=== PATIENT | female | born 1985 | race Caucasian/White ===

== ENCOUNTER 2017-03-02 01:54 | Emergency (ER) | payer SELFPAY ==
[~2017-03-02] VITALS: Ht 162.6 cm; Wt 60.0 kg
[2017-03-02 02:03] VITALS: PULSE 106; RESP 22; O2SAT 98
[2017-03-02] MEDS ORDERED: SODIUM CHLOR 0.9% 1000 ML INJ 1,000 ML IV ONE (02:06)
[2017-03-02 02:12] VITALS: BP 126/66; PULSE 101; RESP 20; TEMP 97.5; O2SAT 98
--- NOTE | 2017-03-02 02:14 | PD ---
HPI Chief Complaint: overdose Time Seen by Provider: 02:05 Travel History International Travel<30 days: No Contact w/Intl Traveler<30days: No History of Present Illness HPI The patient is a 32 year old female who presents to the [facility] emergency department with a history of decreased level of consciousness noted by the police when they were called out because the patient was unresponsive. The patient has a known history of Xanax and Dilaudid use. The patient is an IV drug user. She reports that she's been using for the last 2 years. The patient reports that she was using earlier this evening. She reports that she was using the same amount as usual. She denies any thoughts of harming herself or intention to harm herself prior to arrival. The patient was given Narcan 4 mg intranasally by the police and was noted upon ambulance services arrival to be awake and alert. The patient's blood sugar prior to arrival was 175. The patient shivering on arrival. Bystanders apparently prior to calling the police because of her decreased level of consciousness placed her in a bathtub of ice. The patient has a sinus tachycardia on arrival with a rate in the low 100s. The patient denies any history of fever, cough, congestion, neck pain, chest pain, shortness of breath, abdominal pain, vomiting, diarrhea, urinary symptoms, or neurologic symptoms. LMP: 1-2 months ago [facility] Past Medical History Narrative Medical The patient's past medical history is significant for hepatitis C, history of IV drug use. LMP: 1-2 months ago Past Surgical History Narrative Surgical The patient denies any past surgical history. Social History Alcohol Use: No Tobacco Use: Yes (1-1/2 packs of cigarettes per day) Substance Use: Yes (Xanax, Dilaudid, and "ice") Allergies-Medications (Allergen,Severity, Reaction): Coded Allergies: No Known Allergies (Unverified , 03/02/17) Review of Systems Except as stated in HPI: all other systems reviewed are Neg General / Constitutional: No: Fever Eyes: No: Visual changes HENT: No: Headaches Cardiovascular: No: Chest Pain or Discomfort Respiratory: No: Shortness of Breath Gastrointestinal: No: Abdominal Pain Genitourinary: No: Dysuria Musculoskeletal: No: Pain Skin: No Rash Neurologic: Positive: Change in Mentation, No: Weakness, Focal Abnormalities, Slurred Speech, Sensory Disturbance Psychiatric: Positive: Substance Abuse, No: Depression Endocrine: No: Polydipsia Hematologic/Lymphatic: No: Easy Bruising Physical Exam Narrative General: The patient is a well-developed well-nourished female, cold and wet on arrival related to being in a tub of ice. Head and Neck exam: Head is normocephalic atraumatic. Eyes: EOMI, pupils are equal round and reactive to light. Nose: Midline septum with pink mucous membranes Mouth: Dentition unremarkable. Moist mucus membranes. Posterior oropharynx is not erythematous. No tonsillar hypertrophy. Uvula midline. Airway patent. Neck: No palpable lymphadenopathy. No nuchal rigidity. No thyromegaly. Cardiovascular: Sinus tachycardia in the low 100s without murmurs, gallops, or rubs. No pulse deficit to the extremities and simultaneous auscultation and palpation of her radial artery. Lungs: Clear to auscultation bilaterally. No wheezes, rhonchi, or rales. Abdomen: Soft, without tenderness to palpation in all 4 quadrants of the abdomen. No guarding, rebound, or rigidity. No bowel sounds are audible. No tenderness on palpation of McBurney's point. Extremities: No clubbing, cyanosis, or edema. 2+ pulses in all 4 extremities. No calf tenderness on palpation. The patient has bruising in various stages of healing on her extremities. The patient has track perkins noted on her extremities. No signs of cellulitis or abscess formation. Back: No spinous process tenderness to palpation. No costovertebral angle tenderness to palpation. Neurologic Exam: Cranial nerves 2-12 were intact on exam. Strength is 5/5 in all 4 extremities. No sensory deficits noted. The patient is shivering on examination. The patient is oriented to person, place, time, and situation. Skin Exam: No rash noted. The patient's skin is cool and wet to touch. Data Data Last Documented VS Vital Signs Date Time Temp Pulse Resp B/P (MAP) Pulse Ox O2 Delivery O2 Flow Rate FiO2 03/02/17 11:33 98 20 105/56 (72) 93 03/02/17 11:30 Room Air 03/02/17 02:12 97.5 Orders Orders Complete Blood Count With Diff (03/02/17 02:06) Comprehensive Metabolic Panel (03/02/17 02:06) Prothrombin Time / Inr (Pt) (03/02/17 02:06) Act Partial Throm Time (Ptt) (03/02/17 02:06) Chest, Single Ap (03/02/17 02:06) Iv Access Insert/Monitor (03/02/17 02:06) Ecg Monitoring (03/02/17 02:06) Oximetry (03/02/17 02:06) Sodium Chloride 0.9% Flush (Ns Flush) (03/02/17 02:15) Sodium Chlor 0.9% 1000 Ml Inj (Ns 1000 M (03/02/17 02:06) Alcohol (Ethanol) (03/02/17 02:06) Salicylates (Aspirin) (03/02/17 02:06) Tylenol (Acetaminophen) (03/02/17 02:06) Labs Laboratory Tests Test 03/02/17 02:15 White Blood Count 14.1 TH/MM3 Red Blood Count 5.28 MIL/MM3 Hemoglobin 15.3 GM/DL Hematocrit 46.5 % Mean Corpuscular Volume 88.2 FL Mean Corpuscular Hemoglobin 29.0 PG Mean Corpuscular Hemoglobin Concent 32.9 % Red Cell Distribution Width 13.2 % Platelet Count 387 TH/MM3 Mean Platelet Volume 6.8 FL Neutrophils (%) (Auto) 81.9 % Lymphocytes (%) (Auto) 10.6 % Monocytes (%) (Auto) 5.9 % Eosinophils (%) (Auto) 1.0 % Basophils (%) (Auto) 0.6 % Neutrophils # (Auto) 11.5 TH/MM3 Lymphocytes # (Auto) 1.5 TH/MM3 Monocytes # (Auto) 0.8 TH/MM3 Eosinophils # (Auto) 0.1 TH/MM3 Basophils # (Auto) 0.1 TH/MM3 CBC Comment DIFF FINAL Differential Comment Prothrombin Time 11.2 SEC Prothromb Time International Ratio 1.0 RATIO Activated Partial Thromboplast Time 24.8 SEC Blood Urea Nitrogen 12 MG/DL Creatinine 0.95 MG/DL Random Glucose 83 MG/DL Total Protein 8.4 GM/DL Albumin 3.8 GM/DL Calcium Level 8.9 MG/DL Alkaline Phosphatase 163 U/L Aspartate Amino Transf (AST/SGOT) 73 U/L Alanine Aminotransferase (ALT/SGPT) 46 U/L Total Bilirubin 0.5 MG/DL Sodium Level 138 MEQ/L Potassium Level 3.8 MEQ/L Chloride Level 105 MEQ/L Carbon Dioxide Level 27.2 MEQ/L Anion Gap 6 MEQ/L Estimat Glomerular Filtration Rate 69 ML/MIN Salicylates Level LESS THAN 1.7 MG/DL Acetaminophen Level LESS THAN 2.0 MCG/ML Ethyl Alcohol Level LESS THAN 3 MG/DL MDM Medical Decision Making Medical Screen Exam Complete: Yes Emergency Medical Condition: Yes Medical Record Reviewed: Yes Interpretation(s) Last Impressions Chest X-Ray 03/02/17 0206 Signed Impressions: Service Date/Time: February 02:36 - CONCLUSION: 1. No acute cardiopulmonary disease. Wang Iverson MD Differential Diagnosis Opiate intoxication, versus other substance intoxication, versus multidrug intoxication Narrative Course During the course of the patients emergency department visit, the patients history, examination, and differential diagnosis were reviewed with the patient. The patient had IV access obtained and blood work sent for analysis. The patient was placed on a quality assurance monitor with oximetry and blood pressure monitoring. The patient was initially provided normal saline 1 L IV fluid bolus. The patient will be observed in the emergency department on telemetry and oximetry for any signs of respiratory depression or any signs of decreased level of consciousness as the Narcan begins to wear off. The patient was repeatedly reassessed. The patient continues to be drowsy on examination although arousable. The patient will be continued to be monitored until she is more awake and alert and able to tolerate oral liquids The patients laboratory studies were reviewed and remarkable for a white count of 14.1, hemoglobin 15.3, platelets 387 with 81.9 neutrophils. CMP is remarkable for GFR 69, AST 73, alkaline phosphatase 163, total protein 8.4, salicylate less than 1.7, acetaminophen less than 2, alcohol level less than 3. Radiology studies were reviewed and remarkable for a chest x-ray that shows no acute cardiopulmonary disease. The patient will be discharged home when she is more awake and alert. The patient was instructed regarding the importance of avoiding use of Dilaudid or other opiates illicitly. The patient is resting comfortably and feels better, is alert and in no distress. The patients results and examination findings were discussed with the patient. The repeat examination is unremarkable and benign. The history, exam, diagnostic testing, and current condition do not suggest any significant pathology to warrant further testing, continued ED treatment, admission, or surgical evaluation at this point. The vital signs have been stable. The patient does not have uncontrollable pain, intractable vomiting, or other significant symptoms. The patient's condition is stable and appropriate for discharge. The patient will pursue further outpatient evaluation with a primary care physician or other designated or consulting physician as indicated in the discharge instructions. The patient expressed understanding and was agreeable with this plan. Diagnosis Primary Impression: Polysubstance abuse Additional Impression: Opiate overdose Qualified Codes: T40.601A - Poisoning by unspecified narcotics, accidental ( unintentional), initial encounter Referrals: Primary Care Physician [facility] Patient Instructions: General Instructions, Opioid Overdose (ED), Polysubstance Abuse (ED) Disposition: 01 DISCHARGE HOME Condition: Stable Susannah Bautista MD Mar 02, 2017 02:14
[2017-03-02] MEDS ORDERED: SODIUM CHLORIDE 0.9% FLUSH 10 ML FLUSH IVF PRN (02:15)
[2017-03-02 02:29] LABS: AUTOMATED NEUTROPHIL # 11.5 TH/MM3 (1.8-7.7); BASOPHIL # 0.1 TH/MM3 (0-0.2); BASOPHIL % 0.6 % (0.0-2.0); EOSINOPHIL # 0.1 TH/MM3 (0-0.4); HEMATOCRIT 46.5 % (35.0-46.0); HEMO FLAGS DIFF FINAL; LYMPH % 10.6 % (9.0-44.0); LYMPHOCYTE # 1.5 TH/MM3 (1.0-4.8); MEAN CELL VOLUME 88.2 FL (80.0-100.0); MEAN CORPUSCULAR HGB CONC 32.9 % (32.0-36.0); MONO % 5.9 % (0.0-8.0); NEUT % 81.9 % (16.0-70.0); PLATELET COUNT 387 TH/MM3 (150-450); RED BLOOD COUNT 5.28 MIL/MM3 (4.00-5.30); RED CELL DISTRIBUTION WIDTH 13.2 % (11.6-17.2); WHITE BLOOD COUNT 14.1 TH/MM3 (4.0-11.0)
[2017-03-02 02:44] LABS: ALT (GPT) 46 U/L (10-53); ANION GAP 6 MEQ/L (5-15); AST (GOT) 73 U/L (15-37); BICARBONATE 27.2 MEQ/L (21.0-32.0); BLOOD UREA NITROGEN 12 MG/DL (7-18); CHLORIDE 105 MEQ/L (98-107); GLOMERULAR FILTRATION RATE 69 ML/MIN (>89); POTASSIUM 3.8 MEQ/L (3.5-5.1); SODIUM (NA) 138 MEQ/L (136-145)
[2017-03-02 02:47] LABS: ALKALINE PHOSPHATASE 163 U/L (45-117); TOTAL BILIRUBIN ADULT 0.5 MG/DL (0.2-1.0)
--- NOTE | 2017-03-02 02:47 | RADRPT ---
EXAM DATE/TIME: 03/02/2017 02:36 [place] COMPARISON: No previous studies available for comparison. INDICATIONS : Syncope. Possible overdose. MEDICAL HISTORY : None. SURGICAL HISTORY : None. ENCOUNTER: Initial ACUITY: 1 day PAIN SCORE: Non-responsive. LOCATION: Bilateral chest FINDINGS: A single view of the chest demonstrates the lungs to be symmetrically aerated without evidence of mas s, infiltrate or effusion. The cardiomediastinal contours are unremarkable. Osseous structures are intact. CONCLUSION: 1. No acute cardiopulmonary disease. Wang Iverson MD on March 02, 2017 at 2:45 Board Certified Radiologist. This report was verified electronically.
[2017-03-02 02:49] LABS: ACETAMINOPHEN LESS THAN 2.0 MCG/ML (10.0-30.0); ALCOHOL LESS THAN 3 MG/DL (0-5)
[2017-03-02 02:55] LABS: APTT (PATIENT) 24.8 SEC (24.3-30.1); PROTHROMBIN TIME - PATIENT 11.2 SEC (9.8-11.6)
[2017-03-02 03:34] VITALS: BP 99/57; PULSE 95; RESP 16; O2SAT 97
[2017-03-02 04:11] VITALS: BP 92/50; PULSE 96; RESP 18; O2SAT 96
[2017-03-02 07:00] VITALS: BP 93/57; PULSE 94; RESP 18; O2SAT 95
--- NOTE | 2017-03-02 11:12 | PD ---
Physical Exam Narrative GENERAL: SKIN: Warm and dry. HEAD: Atraumatic. Normocephalic. EYES: Pupils equal and round. No scleral icterus. No injection or drainage. ENT: No nasal bleeding or discharge. Mucous membranes pink and moist. NECK: Trachea midline. No JVD. CARDIOVASCULAR: Regular rate and rhythm. RESPIRATORY: No accessory muscle use. Clear to auscultation. Breath sounds equal bilaterally. GASTROINTESTINAL: Abdomen soft, non-tender, nondistended. Hepatic and splenic margins not palpable. MUSCULOSKELETAL: Extremities without clubbing, cyanosis, or edema. No obvious deformities. NEUROLOGICAL: DROWSY AND SLEEPY BUT AROUSABLE. No obvious cranial nerve deficits. Motor grossly within normal limits. Five out of 5 muscle strength in the arms and legs. Normal speech. PSYCHIATRIC: Appropriate mood and affect; insight and judgment normal. Data Data Last Documented VS Vital Signs Date Time Temp Pulse Resp B/P (MAP) Pulse Ox O2 Delivery O2 Flow Rate FiO2 03/02/17 07:00 94 18 93/57 (69) 95 Room Air 03/02/17 02:12 97.5 Orders Orders Complete Blood Count With Diff (03/02/17 02:06) Comprehensive Metabolic Panel (03/02/17 02:06) Prothrombin Time / Inr (Pt) (03/02/17 02:06) Act Partial Throm Time (Ptt) (03/02/17 02:06) Urinalysis - C+S If Indicated (03/02/17 02:06) Chest, Single Ap (03/02/17 02:06) Iv Access Insert/Monitor (03/02/17 02:06) Ecg Monitoring (03/02/17 02:06) Oximetry (03/02/17 02:06) Sodium Chloride 0.9% Flush (Ns Flush) (03/02/17 02:15) Sodium Chlor 0.9% 1000 Ml Inj (Ns 1000 M (03/02/17 02:06) Drug Screen, Random Urine (03/02/17 02:06) Alcohol (Ethanol) (03/02/17 02:06) Salicylates (Aspirin) (03/02/17 02:06) Tylenol (Acetaminophen) (03/02/17 02:06) Labs Laboratory Tests Test 03/02/17 02:15 White Blood Count 14.1 TH/MM3 Red Blood Count 5.28 MIL/MM3 Hemoglobin 15.3 GM/DL Hematocrit 46.5 % Mean Corpuscular Volume 88.2 FL Mean Corpuscular Hemoglobin 29.0 PG Mean Corpuscular Hemoglobin Concent 32.9 % Red Cell Distribution Width 13.2 % Platelet Count 387 TH/MM3 Mean Platelet Volume 6.8 FL Neutrophils (%) (Auto) 81.9 % Lymphocytes (%) (Auto) 10.6 % Monocytes (%) (Auto) 5.9 % Eosinophils (%) (Auto) 1.0 % Basophils (%) (Auto) 0.6 % Neutrophils # (Auto) 11.5 TH/MM3 Lymphocytes # (Auto) 1.5 TH/MM3 Monocytes # (Auto) 0.8 TH/MM3 Eosinophils # (Auto) 0.1 TH/MM3 Basophils # (Auto) 0.1 TH/MM3 CBC Comment DIFF FINAL Differential Comment Prothrombin Time 11.2 SEC Prothromb Time International Ratio 1.0 RATIO Activated Partial Thromboplast Time 24.8 SEC Blood Urea Nitrogen 12 MG/DL Creatinine 0.95 MG/DL Random Glucose 83 MG/DL Total Protein 8.4 GM/DL Albumin 3.8 GM/DL Calcium Level 8.9 MG/DL Alkaline Phosphatase 163 U/L Aspartate Amino Transf (AST/SGOT) 73 U/L Alanine Aminotransferase (ALT/SGPT) 46 U/L Total Bilirubin 0.5 MG/DL Sodium Level 138 MEQ/L Potassium Level 3.8 MEQ/L Chloride Level 105 MEQ/L Carbon Dioxide Level 27.2 MEQ/L Anion Gap 6 MEQ/L Estimat Glomerular Filtration Rate 69 ML/MIN Salicylates Level LESS THAN 1.7 MG/DL Acetaminophen Level LESS THAN 2.0 MCG/ML Ethyl Alcohol Level LESS THAN 3 MG/DL [facility] Medical Record Reviewed: Yes Supervised Visit with ASMITA: No Diagnosis Primary Impression: MEDICALLY CLEAR Elias Llanos MD Mar 02, 2017 11:12
[2017-03-02 11:33] VITALS: BP 105/56
== END 2017-03-02 11:35 | disposition home or self-care (01) ==
LOC: NEPC 01:54
DX: T40.601A Poisoning by unspecified narcotics, accidental (unintentional), initial encounter (principal); R00.0 Tachycardia, unspecified; F17.210 Nicotine dependence, cigarettes, uncomplicated; B19.20 Unspecified viral hepatitis C without hepatic coma
CPT/HCPCS: 71010; 80053; 80307; 85025; 85610; 85730; 96360; 99285; J7030

== ENCOUNTER 2017-09-13 22:04 | Emergency (ER) | payer SELFPAY ==
[~2017-09-13] VITALS: Ht 165.1 cm; Wt 65.0 kg
[2017-09-13 22:15] VITALS: BP 113/77; PULSE 106; RESP 12; TEMP 97.8; O2SAT 89
[2017-09-13] MEDS ORDERED: SODIUM CHLOR 0.9% 1000 ML INJ 1,000 ML IV SCH (22:30)
[2017-09-13 22:40] LABS: AUTOMATED NEUTROPHIL # 5.8 TH/MM3 (1.8-7.7); BASOPHIL % 0.5 % (0.0-2.0); EOSINOPHIL # 0.1 TH/MM3 (0-0.4); HEMATOCRIT 39.5 % (35.0-46.0); HEMOGLOBIN 13.5 GM/DL (11.6-15.3); LYMPH % 20.5 % (9.0-44.0); LYMPHOCYTE # 1.8 TH/MM3 (1.0-4.8); MEAN CELL VOLUME 86.1 FL (80.0-100.0); MEAN CORPUSCULAR HEMOGLOBIN 29.5 PG (27.0-34.0); MEAN CORPUSCULAR HGB CONC 34.2 % (32.0-36.0); MEAN PLATELET VOLUME 6.7 FL (7.0-11.0); MONO % 12.8 % (0.0-8.0); MONOCYTE # 1.1 TH/MM3 (0-0.9); NEUT % 65.2 % (16.0-70.0); PLATELET COUNT 488 TH/MM3 (150-450); RED BLOOD COUNT 4.58 MIL/MM3 (4.00-5.30); RED CELL DISTRIBUTION WIDTH 14.2 % (11.6-17.2); WHITE BLOOD COUNT 8.9 TH/MM3 (4.0-11.0)
--- NOTE | 2017-09-13 22:47 | PD ---
HPI Chief Complaint: OD/ Ingestion Time Seen by Provider: 22:17 Travel History International Travel<30 days: No Contact w/Intl Traveler<30days: No Traveled to known affect area: No History of Present Illness HPI 32-year-old female was brought in by EMS after having an overdose. Patient's friend states that she was abusing heroin for the past few years including tonight. Patient was found unresponsive and possible seizure activity. EMS was called. Patient was given Narcan IV with good success. Patient arrived to the ED lethargic and unable to provide information. [facility] Past Medical History Medical History: Denies Significant Hx Diminished Hearing: No ?: Unknown LMP: 08/15/2017 Past Surgical History Surgical History: No Previous Surgery Social History Alcohol Use: No Tobacco Use: Yes (1/2 packs of cigarettes per day) Substance Use: Yes (Xanax, Dilaudid, heroin and "ice") Allergies-Medications (Allergen,Severity, Reaction): Coded Allergies: No Known Allergies (Unverified Adverse Reaction, Unknown, 09/13/17) Review of Systems ROS Limitations: Altered Mental Status General / Constitutional: No: Fever Eyes: No: Visual changes HENT: No: Headaches Cardiovascular: No: Chest Pain or Discomfort Respiratory: No: Shortness of Breath Gastrointestinal: No: Abdominal Pain Genitourinary: No: Dysuria Musculoskeletal: No: Pain Skin: No Rash Neurologic: No: Weakness Psychiatric: No: Depression Endocrine: No: Polydipsia Hematologic/Lymphatic: No: Easy Bruising Physical Exam Narrative GENERAL: Well-nourished, well-developed patient. SKIN: Focused skin assessment warm/dry. HEAD: Normocephalic. EYES: No scleral icterus. No injection or drainage. Pupil 1 mm equal reactive. NECK: Supple, trachea midline. No JVD or lymphadenopathy. CARDIOVASCULAR: Regular rate and rhythm without murmurs, gallops, or rubs. RESPIRATORY: Breath sounds equal bilaterally. No accessory muscle use. GASTROINTESTINAL: Abdomen soft, non-tender, nondistended. MUSCULOSKELETAL: No cyanosis, or edema. BACK: Nontender without obvious deformity. No CVA tenderness. Neurologic exam: Patient is lethargic. Patient responded to painful stimuli. Patient moves extremity on command. No obvious focal neurological deficit. Data Data Last Documented VS Vital Signs Date Time Temp Pulse Resp B/P (MAP) Pulse Ox O2 Delivery O2 Flow Rate FiO2 3/21/18 23:11 103 12 111/73 (86) 100 Nasal Cannula 2.00 09/13/17 22:15 97.8 Orders Orders Complete Blood Count With Diff (09/13/17 22:20) Basic Metabolic Panel (Bmp) (09/13/17 22:20) Iv Access Insert/Monitor (09/13/17 22:20) Ecg Monitoring (09/13/17 22:20) Oxygen Administration (09/13/17 22:20) Oximetry (09/13/17 22:20) Ed Urine Pregnancytest Poc (09/13/17 22:20) Sodium Chlor 0.9% 1000 Ml Inj (Ns 1000 M (09/13/17 22:30) Labs Laboratory Tests Test 09/13/17 22:29 White Blood Count 8.9 TH/MM3 Red Blood Count 4.58 MIL/MM3 Hemoglobin 13.5 GM/DL Hematocrit 39.5 % Mean Corpuscular Volume 86.1 FL Mean Corpuscular Hemoglobin 29.5 PG Mean Corpuscular Hemoglobin Concent 34.2 % Red Cell Distribution Width 14.2 % Platelet Count 488 TH/MM3 Mean Platelet Volume 6.7 FL Neutrophils (%) (Auto) 65.2 % Lymphocytes (%) (Auto) 20.5 % Monocytes (%) (Auto) 12.8 % Eosinophils (%) (Auto) 1.0 % Basophils (%) (Auto) 0.5 % Neutrophils # (Auto) 5.8 TH/MM3 Lymphocytes # (Auto) 1.8 TH/MM3 Monocytes # (Auto) 1.1 TH/MM3 Eosinophils # (Auto) 0.1 TH/MM3 Basophils # (Auto) 0.0 TH/MM3 CBC Comment DIFF FINAL Differential Comment Blood Urea Nitrogen 5 MG/DL Creatinine 0.83 MG/DL Random Glucose 140 MG/DL Calcium Level 9.1 MG/DL Sodium Level 138 MEQ/L Potassium Level 3.6 MEQ/L Chloride Level 103 MEQ/L Carbon Dioxide Level 25.2 MEQ/L Anion Gap 10 MEQ/L Estimat Glomerular Filtration Rate 81 ML/MIN MDM Medical Decision Making Medical Screen Exam Complete: Yes Emergency Medical Condition: Yes Interpretation(s) 23:35 PM. CBC within normal limits. BMP within normal limits. Differential Diagnosis Differential diagnosis including drug overdose, electrolyte imbalance, dehydration, Narrative Course 32-year-old female was brought in by EMS after heroine overdose. Patient is lethargic. Patient is given IV fluid. O2 2 L nasal cannula. O2 sats in the mid 90s. Patient will be observed in the ED. Diagnosis Primary Impression: Opiate overdose Qualified Codes: T40.601A - Poisoning by unspecified narcotics, accidental ( unintentional), initial encounter Patient Instructions: General Instructions Additional Instructions: Advised [facility]. Follow-up as needed. Med/Other Pt SpecificInfo: No Meds Exist/No RX given Disposition: 01 DISCHARGE HOME Condition: Stable Mikael Linda MD Sep 13, 2017 22:47
[2017-09-13 22:49] LABS: BICARBONATE 25.2 MEQ/L (21.0-32.0); CALCIUM 9.1 MG/DL (8.5-10.1); CREATININE 0.83 MG/DL (0.50-1.00)
[2017-09-13 23:11] VITALS: BP 111/73; PULSE 103; RESP 12; O2SAT 100
[2017-09-14 00:23] VITALS: BP 105/68; PULSE 76; RESP 12; O2SAT 100
[2017-09-14 01:49] VITALS: BP 115/70; PULSE 78; RESP 11; O2SAT 98
== END 2017-09-14 07:03 | disposition home or self-care (01) ==
LOC: NEPD 22:04
DX: T40.1X1A Poisoning by heroin, accidental (unintentional), initial encounter (principal); F17.210 Nicotine dependence, cigarettes, uncomplicated; F11.10 Opioid abuse, uncomplicated
CPT/HCPCS: 80048; 84703; 85025; 99283; J7030